=== PATIENT | female | born 1970 | race Two or more races ===

== ENCOUNTER 2016-12-31 12:08 | Emergency (ER) | payer MEDICAID ==
[~2016-12-31] VITALS: Ht 162.6 cm; Wt 63.5 kg
[2016-12-31 12:22] VITALS: BP 110/72
[2016-12-31 12:43] LABS: APPEARANCE,URINE CLEAR; KETONES,URINE NEGATIVE (NEGATIVE); LEUKOCYTE ESTERASE ,URINE NEGATIVE (NEGATIVE); NITRITE,URINE NEGATIVE (NEGATIVE); PH,URINE 6.5 (4.5-8.0); PROTEIN,URINE NEGATIVE (NEGATIVE); UROBILINOGEN,URINE NORMAL MG/DL (0.0-1.0)
[2016-12-31] MEDS ORDERED: Mylanta II UD 30ml ORAL ONE (12:45)
[2016-12-31] MEDS ORDERED: Lidocaine 2% Visc 15ml soln ORAL ONE (12:45)
--- NOTE | 2016-12-31 12:53 | Emergency Room Report ---
History of Present Illness General Chief Complaint: Abdominal Pain Source: Patient Present Illness HPI 46 YO Female presents with 7/10 in severity abdominal pain that is intermittent located epigastric, and RUQ, pain is worst at night. Pt. also states she has not had her period in two months, and is worried she may be . Pt. denies past medical hx. pt was given abx for infection by her pmd, however she did not take them because she was scared she may be . Pt. denies fevers , chills, rashes, diarrhea, and vomiting. pt reports mild need to strain with bowel movements, last BM was two days ago. denies blood in the stool or black tarry stools. pt. reports some dysuria, denies hematuria, frequency or urgency. Denies CP, Palpitations, or DC. Allergies: Coded Allergies: MORPHINE (Verified Allergy, Unknown, 12/31/16) Patient History Past Medical History: see triage record Past Surgical History: none Pertinent Family History: none Now: No Reviewed Nursing Documentation: PMH: Agreed, PSxH: Agreed Nursing Documentation-PMH Past Medical History: No Stated History Review of Systems All Other Systems: negative except mentioned in HPI Physical Exam Vital Signs Date Time Temp Pulse Resp B/P Pulse Ox O2 Delivery O2 Flow Rate FiO2 12/31/16 12:15 98.2 84 20 110/72 96 Room Air Sp02 EP Interpretation: reviewed, normal General Appearance: no apparent distress, alert, GCS 15, non-toxic Head: normocephalic, atraumatic Eyes: bilateral eye PERRL, bilateral eye normal inspection ENT: hearing grossly normal, normal pharynx, no angioedema, normal voice Neck: full range of motion, supple/symm/no masses Respiratory: chest non-tender, lungs clear, normal breath sounds, speaking full sentences Cardiovascular #1: regular rate, rhythm, no edema Gastrointestinal: normal bowel sounds, soft, no guarding, no rebound, other - TTP to RUQ, Negative Hilliards signs, Negative MacBurney's sign, Negative Rosvigns Sign, Negative Psoas, No Peritoneal signs. Rectal: deferred Genitourinary: normal inspection, no CVA tenderness Musculoskeletal: back normal, gait/station normal, normal range of motion, non- tender Neurologic: alert, oriented x3, responsive, motor strength/tone normal, sensory intact, speech normal Psychiatric: judgement/insight normal, memory normal, mood/affect normal Skin: normal color, no rash, warm/dry, well hydrated Medical Decision Making PA Attestation Dr. Zamora is my supervising Physician whom patient management has been discussed with. Diagnostic Impression: Primary Impression: Gall stones Additional Impressions: Nodule on liver Fibroid, uterine Qualified Codes: D25.9 - Leiomyoma of uterus, unspecified ER Course 46 YO Female presents with 7/10 in severity abdominal pain that is intermittent located epigastric, and RUQ, pain is worst at night. Pt. also states she has not had her period in two months, and is worried she may be . Pt. denies past medical hx. pt was given abx for infection by her pmd, however she did not take them because she was scared she may be . Pt. denies fevers , chills, rashes, diarrhea, and vomiting. pt reports mild need to strain with bowel movements, last BM was two days ago. denies blood in the stool or black tarry stools. pt. reports some dysuria, denies hematuria, frequency or urgency. Denies CP, Palpitations, or DC. Ddx considered but are not limited to Diverticulitis, acute appy, diarrhea,UC, PUD, GE, pancreatitis, gallstone Vital signs: are WNL, pt. is afebrile H&PE are most consistent with possible UTI and gastritis. doubtful suspect menopause, pt. is also of age for gallbladder complications ORDERS: - CBC, CMP, Lipase- WNL/ unremarkable - UA: unremarkable - Urine Hcg: negative ED INTERVENTIONS: - 40mg Toradol IM - Gi Cocktail -150mg Zantac PO - Abdominal US: positive for stones in the gallbladder, normal CBD, liver nodule noted per official radiology report. -Pelvic US: echogenic structures in the bilateral fallopian tubes, and fundal subcentimeter fibroids per official radiology report. - D/w pt. the results of her imaging, and lab work, Dr. Zamora also d/w pt results of abdominal imaging. upon receipt of pelvic US I d/w her that she will need follow up with her PCP, and I will rx her pain medication. DISCHARGE: At this time pt. is stable for d/c to home. Will provide printed patient care instructions, and any necessary prescriptions. Care plan and follow up instructions have been discussed with the patient prior to discharge. Labs Test 12/31/16 12:20 12/31/16 13:00 Urine Color Yellow Urine Appearance Clear Urine pH 6.5 (4.5-8.0) Urine Specific [place] 1.010 (1.005-1.035) Urine Protein Negative (NEGATIVE) Urine Glucose (UA) Negative (NEGATIVE) Urine Ketones Negative (NEGATIVE) Urine Occult Blood Negative (NEGATIVE) Urine Nitrite Negative (NEGATIVE) Urine Bilirubin Negative (NEGATIVE) Urine Urobilinogen Normal MG/DL (0.0-1.0) Urine Leukocyte Esterase Negative (NEGATIVE) Urine HCG, Qualitative Negative White Blood Count 6.3 K/UL (4.8-10.8) Red Blood Count 4.65 M/UL (4.20-5.40) Hemoglobin 14.0 G/DL (12.0-16.0) Hematocrit 42.5 % (37.0-47.0) Mean Corpuscular Volume 91 FL (80-99) Mean Corpuscular Hemoglobin 30.1 PG (27.0-31.0) Mean Corpuscular Hemoglobin Concent 32.9 G/DL (32.0-36.0) Red Cell Distribution Width 11.6 % (11.6-14.8) Platelet Count 290 K/UL (150-450) Mean Platelet Volume 6.7 FL (6.5-10.1) Neutrophils (%) (Auto) 54.0 % (45.0-75.0) Lymphocytes (%) (Auto) 36.8 % (20.0-45.0) Monocytes (%) (Auto) 5.5 % (1.0-10.0) Eosinophils (%) (Auto) 2.3 % (0.0-3.0) Basophils (%) (Auto) 1.3 % (0.0-2.0) Sodium Level 142 mEQ/L (135-145) Potassium Level 4.1 mEQ/L (3.4-4.9) Chloride Level 101 mEQ/L (98-107) Carbon Dioxide Level 26 mEQ/L (20-30) Anion Gap 15 (5-15) Blood Urea Nitrogen 14 mg/dL (7-23) Creatinine 0.8 mg/dL (0.5-0.9) Estimat Glomerular Filtration Rate > 60 mL/min (>60) Glucose Level 97 mg/dL (74-106) Calcium Level 9.5 mg/dL (8.6-10.2) Total Bilirubin 0.5 mg/dL (0.0-1.2) Aspartate Amino Transf (AST/SGOT) 19 U/L (5-40) Alanine Aminotransferase (ALT/SGPT) 16 U/L (3-33) Alkaline Phosphatase 68 U/L (35-104) Total Protein 7.5 g/dL (6.6-8.7) Albumin 4.2 g/dL (3.5-5.2) Globulin 3.3 g/dL Albumin/Globulin Ratio 1.2 (1.0-2.7) Lipase 38 U/L (< 60) Last Vital Signs Date Time Temp Pulse Resp B/P Pulse Ox O2 Delivery O2 Flow Rate FiO2 12/31/16 12:22 98.2 84 20 110/72 96 Room Air Disposition: HOME, SELF-CARE Condition: Stable Scripts Ondansetron Odt* (ZOFRAN ODT*) 4 Mg Tab.rapdis 4 MG ORAL Q6H Y for Nausea & Vomiting, #20 TAB Prov: Isabel Ziegler 12/31/16 Acetaminophen With Codeine (T#3) (TYLENOL #3 TAB*) Y Tab 1 TAB ORAL Q6HR Y for For Pain, #15 TAB Prov: Isabel Ziegler 12/31/16 Ranitidine Hcl* (ZANTAC*) 150 Mg Tablet 150 MG ORAL TWICE A DAY for 30 Days, #60 TAB Prov: Isabel Ziegler 12/31/16 Patient Instructions: Abdominal or Pelvic Ultrasound, [id number], Cholelithiasis, [id number] Additional Instructions: Take medications as directed. Follow up with PCP in 3-5 days Return sooner to ED if new symptoms occur, or current symptoms become worse. - Please note that this Emergency Department Report was dictated using [id number] manager/dispatch technology software, occasionally this can lead to erroneous entry secondary to interpretation by the dictation equipment. Isabel Ziegler Dec 31, 2016 12:53
[2016-12-31 13:13] LABS: BASOPHILS % (AUTO) 1.3 % (0.0-2.0); EOSINOPHILS % (AUTO) 2.3 % (0.0-3.0); LYMPHOCYTES % (AUTO) 36.8 % (20.0-45.0); MEAN CORPUSCULAR HEMOGLOBIN 30.1 PG (27.0-31.0); MEAN CORPUSCULAR HGB CONC 32.9 G/DL (32.0-36.0); MEAN CORPUSCULAR VOLUME 91 FL (80-99); MEAN PLATELET VOLUME 6.7 FL (6.5-10.1); MONOCYTES % (AUTO) 5.5 % (1.0-10.0); PLATELET COUNT 290 K/UL (150-450); RED BLOOD COUNT 4.65 M/UL (4.20-5.40); RED CELL DISTRIBUTION WIDTH 11.6 % (11.6-14.8); WHITE BLOOD COUNT 6.3 K/UL (4.8-10.8)
[2016-12-31 13:28] LABS: ALANINE AMINOTRANSFERASE 16 U/L (3-33); ALBUMIN/GLOBULIN RATIO 1.2 (1.0-2.7); ANION GAP 15 (5-15); ASPARTATE AMINO TRANSFERASE 19 U/L (5-40); CALCIUM 9.5 mg/dL (8.6-10.2); CARBON DIOXIDE 26 mEQ/L (20-30); CHLORIDE 101 mEQ/L (98-107); CREATININE 0.8 mg/dL (0.5-0.9); GLOMERULAR FILTRATION RATE > 60 mL/min (>60); HEMOLYSIS 7; LIPASE 38 U/L (< 60); POTASSIUM 4.1 mEQ/L (3.4-4.9); SODIUM 142 mEQ/L (135-145); TOTAL PROTEIN 7.5 g/dL (6.6-8.7)
[2016-12-31 14:00] VITALS: BP 121/81
[2016-12-31] MEDS ORDERED: Ketorolac 60mg Inj IM ONE (14:15)
[2016-12-31] MEDS ORDERED: ACETAMINOPHEN-1 EAC1 ORAL (16:03)
[2016-12-31] MEDS ORDERED: ZOFRAN ODT4 MG ORAL (16:03)
[2016-12-31] MEDS ORDERED: ZANTAC150 MG ORAL (16:03)
[2016-12-31 16:10] VITALS: BP 119/74
[2016-12-31 16:11] VITALS: BP 110/72
--- NOTE | 2017-01-02 09:19 | Diagnostic Imaging Report ---
Indication: Pelvic pain, negative urine test Technique: Transabdominal and transvaginal images Comparison: None Findings: Uterus measures 7.6 cm length by 3.7 cm AP. Endometrium measures 3 mm thick. Small hypoechoic foci measuring up to 7 mm are seen the myometrium. Linear echogenic structures are seen in the expected region of the interstitial portions of the fallopian tubes. Left ovary measures 2.5 cm length. Right ovary measures 2.3 cm length. No adnexal mass. No free cul-de-sac fluid Impression: Echogenic structures in the interstitial portions of fallopian tube, consistent with known prior Essure device placement Anterior uterine fundal subcentimeter uterine fibroids Negative for adnexal mass or free cul-de-sac fluid
== END 2016-12-31 16:17 | disposition home or self-care (01) ==
LOC: EMR 13:25
DX: D25.9 Leiomyoma of uterus, unspecified (principal); K80.80 Other cholelithiasis without obstruction; Z88.6 Allergy status to analgesic agent
CPT/HCPCS: 36415; 76700; 76830; 76856; 80053; 81003; 81025; 83690; 85025; 96372; 99284